=== PATIENT | male | born 1990 | race American Indian/Alaskan Native ===

== ENCOUNTER 2020-06-24 12:38 | Inpatient (IN) | payer OTHER ==
--- NOTE | 2020-06-24 13:13 | Event Note ---
ED Screening Note Date of service: 06/24/20 Time: 13:08 ED Screening Note: 30 yr old male presents to ED with substernal chest pain (tightness) its non radiating He states he notices it mainly when he walks. He also reports SOB on extertion, cough and wheezing. He states his mom told him it could be "blood clot" He denies any recent long distance travel or immobilization, hx of Cancer, hormone use, or recent surgery or LE injury He reports no calf pain or leg swelling He denies n/v, diaphoresis, abd pain, fever or chills He states he had treadmill stress test about 2 yrs ago at [facility] and it was neg. He states he thinks his dad had TX at 50. This initial assessment/diagnostic orders/clinical plan/treatment(s) is/are subject to change based on patients health status, clinical progression and re- assessment by fellow clinical providers in the ED. Further treatment and workup at subsequent clinical providers discretion. Patient/guardian urged not to elope from the ED as their condition may be serious if not clinically assessed and managed. Initial orders include: Chest pain order set
--- NOTE | 2020-06-24 13:46 | XRay Report ---
CHEST 2 VIEWS INDICATION: Chest Pain. COMPARISON: FINDINGS: Support devices: None. Heart: Within normal limits. Lungs: No acute air space or interstitial disease. Pleura: No significant pleural effusion. No pneumothorax. Additional findings: None. IMPRESSION: 1. No acute findings. Signer Name: Pritesh Franklin MD Signed: 06/24/2020 1:42 PM Workstation Name: [id number]
[2020-06-24 14:27] LABS: Basophils % (Auto) 0.5 % (0.0-1.8); Eosinophils # (Auto) 0.1 K/mm3 (0.0-0.4); Eosinophils % (Auto) 2.5 % (0.0-4.3); Hematocrit 48.2 % (35.5-45.6); Hemoglobin 15.9 gm/dl (11.8-15.2); Lymphocytes # (Auto) 1.9 K/mm3 (1.2-5.4); Lymphocytes % (Auto) 35.3 % (13.4-35.0); Mean Corpuscular HGB Conc 33 % (32-34); Mean Corpuscular Volume 93 fl (84-94); Monocytes # (Auto) 0.7 K/mm3 (0.0-0.8); Monocytes % (Auto) 12.8 % (0.0-7.3); Platelet Count 113 K/mm3 (140-440); Red Blood Count 5.18 M/mm3 (3.65-5.03); Red Cell Distribution Width 13.9 % (13.2-15.2)
[2020-06-24 15:03] LABS: Alanine Aminotransferase 32 units/L (7-56); BUN/Creatinine Ratio 6; Blood Urea Nitrogen 7 mg/dL (9-20); Calcium 9.1 mg/dL (8.4-10.2); Hemolysis Index 140
--- NOTE | 2020-06-24 17:07 | Emergency Department Report ---
<ANAANDREW PIERRE - Last Filed: 06/24/20 21:03> ED General Adult HPI - General Chief complaint: Chest Pain Stated complaint: TERESO X2WKS Time Seen by Provider: 06/24/20 16:51 Source: patient Mode of arrival: Ambulatory Limitations: No Limitations - History of Present Illness Initial comments: 30-year-old male patient with history of tobacco use, BMI >30 kg, and DVT (not currently on anticoagulation) presents to the emergency department with complaints of exertional nonradiating chest pain with associated dyspnea and palpitations starting 2 weeks ago. Describes the chest pain as "sharp/tight," relieved with rest. No known family history of early heart disease. No history of hypertension, hyperlipidemia, diabetes. No prior history of cardiac catheterization. Denies fever, chills, cough, syncope, nausea, vomiting, d iaphoresis, lower extremity swelling. Denies all other complaints at this time. - Related Data Allergies Allergy/AdvReac Type Severity Reaction Status Date / Time No Known Allergies Allergy Unverified 06/24/20 12:49 ED Review of Systems Other: GENERAL: Negative for fever, chills, weight change, anorexia, fatigue. ENT: Negative for ear pain, difficulty hearing, sore throat, nasal congestion, epistaxis. CARDIOVASCULAR: Positive for chest pain and palpitations. PULMONARY: Positive for dyspnea. GASTROINTESTINAL: Negative for abdominal pain, nausea, vomiting, diarrhea, constipation. MUSCULOSKELETAL: Positive for left thigh pain. NEUROLOGICAL: Negative for headache, seizure, syncope, paresthesias, weakness. INTEGUMENTARY: Negative for erythema, rash, diaphoresis, laceration, ecchymosis. HEMATOLOGICAL: Negative for hemoptysis, hematemesis, hematochezia, hematuria. PSYCHIATRIC: Negative for hallucinations, suicidal ideation, homicidal ideation, anxiety, depression. ED Past Medical Hx - Past Medical History Previous Medical History?: No Hx Tuberculosis: No - Surgical History Past Surgical History?: No - Social History Smoking Status: Current Every Day Smoker ED Physical Exam - General Limitations: No Limitations - Other Other exam information: General: Awake and alert. No acute distress. Head: Atraumatic, normocephalic. Eyes: EOMI. Pupils are equal and round. Normal sclera and conjunctiva. ENT: Oral mucosa is moist. Normal pharyngeal exam. Neck: Supple. No lymphadenopathy. Pulmonary: No respiratory distress. Clear to auscultation bilaterally. Cardiac: Regular rate and rhythm. Pulses are palpable and equal bilaterally. No lower extremity cyanosis or edema. Chest wall is nontender to palpation. Skin: Warm and dry. No rashes. Abdomen: Soft, non-tender, non-protuberant. No guarding, rigidity, or rebound. Bowel sounds are normal. No organomegaly or masses noted. Back: Normal alignment. No CVA tenderness. Extremities: Symmetrical. Full range of motion intact. Neurological: Alert and oriented, appropriately interactive, no focal deficits. Psych: Cooperative. Appropriate mood and affect. Speech is evenly metered. Thoughts are logically construed. ED Medical Decision Making - Lab Data Result diagrams: 06/24/20 13:40 06/24/20 13:40 - EKG Data 06/24/20 17:06 EKG shows normal sinus rhythm with a ventricular rate of 96 bpm. Normal axis. Normal MD interval. QT interval 390 ms. Inferolateral T wave inversions noted. No old EKG available for comparison. Over read by attending emergency physician, who agrees with this interpretation. - Radiology Data [facility] [address] [place] [address] Cat Scan Report Signed Patient: MAC BROWN JR MR#: [id number] : 1990 Acct:[id number] Age/Sex: 30 / M ADM Date: 06/24/20 Loc: ED Attending Dr: Ordering Physician: AUGUSTUS NICHOLS Date of Service: 06/24/20 Procedure(s): CT angio chest Accession Number(s): [id number] cc: AUGUSTUS NICHOLS CTA CHEST WITH CONTRAST INDICATION / CLINICAL INFORMATION: Chest pain. Shortness of breath. TECHNIQUE: Axial CT images were obtained through the chest after injection of Omnipaque 350, 100 cc IV contrast. 3 plane MIP and/or 3D reconstructions were produced. All CT scans at this location are performed using CT dose reduction for ALARA by means of automated exposure control. COMPARISON: None available. FINDINGS: PULMONARY ARTERIES: Lateral pulmonary emboli involving all lobes greatest at the right lower lobe where there is near complete obstruction. THORACIC AORTA: No significant abnormality. HEART: The right ventricle is greater than the left ventricle in size and there is mild bowing of the interventricular septum. Contrast refluxes into the superior aspect of the IVC. CORONARY ARTERY CALCIFICATION: None. MEDIASTINUM / GER: No significant abnormality. PLEURA: No pleural effusion. No pneumothorax. LUNGS: No acute air space or interstitial disease. ADDITIONAL FINDINGS: None. UPPER ABDOMEN: No acute findings. SKELETAL STRUCTURES: No significant osseous abnormality. IMPRESSION: 1. Large bilateral pulmonary emboli greatest at the right lower lobe. 2. Evidence of right heart strain. CRITICAL RESULT: Time of Discovery: 7:25 PM Time of Communication: 7:28 PM Licensed Practitioner Receiving Report: Mikayla Ana Read Back Performed: Yes. Signer Name: Iglesia Patrick MD Signed: 06/24/2020 8:33 PM Workstation Name: [id number] Transcribed By: ES Dictated By: Iglesia Patrick MD Electronically Authenticated By: Iglesia Patrick MD Signed Date/Time: 06/24/202032 DD/ 19 TD/TT: Print Cancel - Medical Decision Making Differential diagnosis including but not limited to: acute coronary syndrome, cardiac arrhythmia, pericarditis, pericardial effusion/cardiac tamponade, pneumonia, pneumothorax, pleural effusion, congestive heart failure, pulmonary embolism, aortic aneurysm/dissection Upon further interrogation following initial labs/imaging, patient also endorses a positive family history of venous thromboembolism. States he was previously prescribed Coumadin (and later Xarelto) for a DVT in his right leg, but he has been noncompliant with his anticoagulation since February 2020. He does endorse intermittent nontraumatic left thigh pain. D-Dimer is already in progress; will proceed with chest CTA + venous duplex US of the LLE if positive. On re-evaluation, patient remains stable. Tachycardia noted on arrival has resolved without intervention. D-dimer is significantly elevated; will proceed with further imaging. On re-evaluation, patient remains stable. Vital signs are within normal limits. His symptoms are unchanged. CTA of the chest demonstrates multiple large bilateral pulmonary emboli, greatest at the right lower lobe, with evidence of right heart strain. Since he remains hemodynamically stable without respiratory distress, there is no clinical indication for emergent catheter directed thrombolysis at this time. Patient will be started on IV heparin and admitted to the hospitalist for further management. Patient expressed understanding and is agreeable to plan of care. Case discussed with Dr. Talley, attending emergency physician, who agrees with plan of care and will discuss case with hospitalist for admission. ED Disposition Clinical Impression: Multiple pulmonary emboli Disposition: DC-[id number] OP ADMIT IP TO THIS HOSP Condition: Stable HEART Score - HEART Score History: Moderately suspicious EKG: Non-specific Age: < 45 Risk factors: 1-2 risk factors Troponin: < normal limit HEART Score: 3 - Critical Actions Critical Actions: 0-3 pts:0.9-1.7%risk of adverse cardiac event.Candidate for discharge <LAURIE TALLEY - Last Filed: 06/24/20 21:26> ED Review of Systems ROS: Stated complaint: TERESO X2WKS Other details as noted in HPI ED Course Vital Signs 06/24/20 06/24/20 06/24/20 12:49 17:46 18:00 Temperature 98.1 F Pulse Rate 108 H 93 H 104 H Respiratory 18 20 25 H Rate Blood Pressure 129/97 126/84 124/79 O2 Sat by Pulse 98 95 97 Oximetry 06/24/20 06/24/20 18:16 18:30 Temperature Pulse Rate 94 H 95 H Respiratory 28 H 22 Rate Blood Pressure 130/77 138/82 O2 Sat by Pulse 95 96 Oximetry ED Medical Decision Making - Lab Data Result diagrams: 06/24/20 13:40 06/24/20 13:40 - Medical Decision Making I spoke with Dr. Gomez, hospitalist who accepted patient to telemetry. I ordered heparin bolus and infusion. I also provided bridging orders. Critical care attestation.: If time is entered above; I have spent that time in minutes in the direct care of this critically ill patient, excluding procedure time. ED Disposition Is pt being admited?: Yes Does the pt Need Aspirin: No HEART Score - HEART Score Troponin: Troponin T < 0.010 ng/mL (0.00-0.029) 06/24/20 16:50
[2020-06-24] MEDS ORDERED: ASPIRIN 81 MG TAB CHEW PO ONE (17:08)
[2020-06-24 17:59] LABS: INR 1.05 (0.87-1.13)
[2020-06-24 18:00] LABS: Partial Thromboplastin Time 25.8 Sec. (24.2-36.6)
--- NOTE | 2020-06-24 20:04 | Vascular Lab Report ---
DUPLEX DOPPLER LOWER EXTREMITY VEINS, BILATERAL INDICATION: hx RLE DVT (not on AC) + LLE pain; (+) d-dimer. TECHNIQUE: Duplex doppler imaging was performed through the veins of both lower extremities using venous aleah trey and other maneuvers. COMPARISON: None available. FINDINGS: Right Common femoral vein: Negative. Right Superficial femoral vein: Negative. Right Popliteal vein: Negative. Right Calf veins: Negative. Left Common femoral vein: Negative. Left Superficial femoral vein: Negative. Left Popliteal vein: Negative. Left Calf veins: Negative. Additional findings: None. IMPRESSION: Negative for DVT. Signer Name: Iglesia Patrick MD Signed: 06/24/2020 7:59 PM Workstation Name: [id number]
[2020-06-24] MEDS ORDERED: HEPARIN 10,000 UNITS/10 ML VIAL IV ONE (20:33)
--- NOTE | 2020-06-24 20:37 | Cat Scan Report ---
CTA CHEST WITH CONTRAST INDICATION / CLINICAL INFORMATION: Chest pain. Shortness of breath. TECHNIQUE: Axial CT images were obtained through the chest after injection of Omnipaque 350, 100 cc I V contrast. 3 plane MIP and/or 3D reconstructions were produced. All CT scans at this location are pe rformed using CT dose reduction for ALARA by means of automated exposure control. COMPARISON: None available. FINDINGS: PULMONARY ARTERIES: Lateral pulmonary emboli involving all lobes greatest at the right lower lobe whe re there is near complete obstruction. THORACIC AORTA: No significant abnormality. HEART: The right ventricle is greater than the left ventricle in size and there is mild bowing of the interventricular septum. Contrast refluxes into the superior aspect of the IVC. CORONARY ARTERY CALCIFICATION: None. MEDIASTINUM / GER: No significant abnormality. PLEURA: No pleural effusion. No pneumothorax. LUNGS: No acute air space or interstitial disease. ADDITIONAL FINDINGS: None. UPPER ABDOMEN: No acute findings. SKELETAL STRUCTURES: No significant osseous abnormality. IMPRESSION: 1. Large bilateral pulmonary emboli greatest at the right lower lobe. 2. Evidence of right heart strain. CRITICAL RESULT: Time of Discovery: 7:25 PM Time of Communication: 7:28 PM Licensed Practitioner Receiving Report: Mikayla Perez Read Back Performed: Yes. Signer Name: Iglesia Patrick MD Signed: 06/24/2020 8:33 PM Workstation Name: [id number]
[2020-06-24] MEDS ORDERED: HEPARIN/ 0.45% NACL DRIP 25,000 UNIT/500 ML BAG IV SCH (21:00)
[2020-06-24] MEDS ORDERED: ALBUTEROL 2.5 MG/3 ML NEBU IH PRN (22:53)
[2020-06-24] MEDS ORDERED: ONDANSETRON 4 MG/2 ML INJ IV PRN (22:53)
[2020-06-24] MEDS ORDERED: ACETAMINOPHEN 325 MG TAB PO PRN (22:53)
[2020-06-24] MEDS ORDERED: MORPHINE 2 MG/1 ML INJ IV PRN (22:53)
--- NOTE | 2020-06-24 23:00 | History and Physical Report ---
History of Present Illness Date of examination: 06/24/20 Date of admission: 06/24/20 21:27 Chief complaint: Chest pain History of present illness: 30-year-old male patient with history of tobacco use, BMI >30 kg, and DVT (not currently on anticoagulation.) Was brought to the emergency department with complaints of exertional nonradiating chest pain with associated dyspnea and palpitations starting 2 weeks ago. Patient chest pain as "sharp/tight," relieved with rest. Denies fever, chills, cough, syncope, nausea, vomiting, diaphoresis, lower extremity swelling. Denies all other complaints at this time. In the emergency room patient is found to have multiple pulmonary embolism. Troponin is 0.010 Past History Past Medical History: DVT Social history: smoking Medications and Allergies Allergies Allergy/AdvReac Type Severity Reaction Status Date / Time No Known Allergies Allergy Unverified 06/24/20 12:49 Active Meds: Active Medications Acetaminophen (Acetaminophen 325 Mg Tab) 650 mg PO Q4H PRN PRN Reason: Pain MILD(1-3)/Fever >100.5/KIRK Albuterol (Albuterol 2.5 Mg/3 Ml Nebu) 2.5 mg IH Q4HRT PRN PRN Reason: Shortness Of Breath Docusate Sodium (Docusate Sodium 100 Mg Cap) 100 mg PO BID CHANTAL Famotidine (Famotidine 10 Mg Tab) 10 mg PO BID CHANTAL Heparin Sodium/Sodium Chloride (Heparin/ 0.45% Nacl-25,000 Unit/500 Ml) 25,000 unit in 500 mls @ 27 mls/hr IV TITR CHANTAL; Protocol Last Admin: 06/24/20 21:19 Dose: 1,350 units/hr, 27 mls/hr Documented by: Morphine Sulfate (Morphine 2 Mg/1 Ml Inj) 2 mg IV Q4H PRN PRN Reason: Pain, Moderate (4-6) Ondansetron HCl (Ondansetron 4 Mg/2 Ml Inj) 4 mg IV Q8H PRN PRN Reason: Nausea And Vomiting Sodium Chloride (Sodium Chloride 0.9% 10 Ml Flush Syringe) 10 ml IV BID CHANTAL Sodium Chloride (Sodium Chloride 0.9% 10 Ml Flush Syringe) 10 ml IV PRN PRN PRN Reason: LINE FLUSH Review of Systems Cardiovascular: chest pain, palpitations, shortness of breath Respiratory: shortness of breath, dyspnea on exertion Exam - Constitutional Vitals: Temp Pulse Resp BP Pulse Ox 98.1 F 95 H 22 138/82 96 06/24/20 12:49 06/24/20 18:30 06/24/20 18:30 06/24/20 18:30 06/24/20 18:30 General appearance: Present: no acute distress, well-nourished - EENT Eyes: Present: PERRL ENT: hearing intact, clear oral mucosa - Neck Neck: Present: supple, normal ROM - Respiratory Respiratory effort: normal Respiratory: bilateral: diminished - Cardiovascular Heart Sounds: Present: S1 & S2. Absent: rub, click - Extremities Extremities: pulses symmetrical, No edema Peripheral Pulses: within normal limits - Abdominal General gastrointestinal: Present: soft, non-tender, non-distended, normal bowel sounds Male genitourinary: Present: normal - Integumentary Integumentary: Present: clear, warm, dry - Musculoskeletal Musculoskeletal: gait normal, strength equal bilaterally - Psychiatric Psychiatric: appropriate mood/affect, intact judgment & insight - Neurologic Neurologic: CNII-XII intact, moves all extremities HEART Score - HEART Score EKG: Non-specific Age: < 45 Risk factors: 1-2 risk factors Troponin: Troponin T < 0.010 ng/mL (0.00-0.029) 06/24/20 16:50 Troponin: < normal limit - Critical Actions Critical Actions: 0-3 pts:0.9-1.7%risk of adverse cardiac event.Candidate for rory ewing Results - Labs CBC & Chem 7: 06/24/20 13:40 06/24/20 13:40 Labs: Laboratory Last Values WBC 5.4 K/mm3 (4.5-11.0) 06/24/20 13:40 RBC 5.18 M/mm3 (3.65-5.03) H 06/24/20 13:40 Hgb 15.9 gm/dl (11.8-15.2) H 06/24/20 13:40 Hct 48.2 % (35.5-45.6) H 06/24/20 13:40 MCV 93 fl (84-94) 06/24/20 13:40 MCH 31 pg (28-32) 06/24/20 13:40 MCHC 33 % (32-34) 06/24/20 13:40 RDW 13.9 % (13.2-15.2) 06/24/20 13:40 Plt Count 113 K/mm3 (140-440) L 06/24/20 13:40 Lymph % (Auto) 35.3 % (13.4-35.0) H 06/24/20 13:40 [place] % (Auto) 12.8 % (0.0-7.3) H 06/24/20 13:40 Eos % (Auto) 2.5 % (0.0-4.3) 06/24/20 13:40 Baso % (Auto) 0.5 % (0.0-1.8) 06/24/20 13:40 Lymph # (Auto) 1.9 K/mm3 (1.2-5.4) 06/24/20 13:40 [place] # (Auto) 0.7 K/mm3 (0.0-0.8) 06/24/20 13:40 Eos # (Auto) 0.1 K/mm3 (0.0-0.4) 06/24/20 13:40 Baso # (Auto) 0.0 K/mm3 (0.0-0.1) 06/24/20 13:40 Seg Neutrophils % 48.9 % (40.0-70.0) 06/24/20 13:40 Seg Neutrophils # 2.6 K/mm3 (1.8-7.7) 06/24/20 13:40 PT 13.5 Sec. (12.2-14.9) 06/24/20 17:20 INR 1.05 (0.87-1.13) 06/24/20 17:20 APTT 25.8 Sec. (24.2-36.6) 06/24/20 17:20 D-Dimer 1710.63 ng/mlDDU (0-234) H 06/24/20 16:54 Sodium 139 mmol/L (137-145) 06/24/20 13:40 Potassium 4.5 mmol/L (3.6-5.0) 06/24/20 13:40 Chloride 103.0 mmol/L (98-107) 06/24/20 13:40 Carbon Dioxide 24 mmol/L (22-30) 06/24/20 13:40 Anion Gap 17 mmol/L 06/24/20 13:40 BUN 7 mg/dL (9-20) L 06/24/20 13:40 Creatinine 1.1 mg/dL (0.8-1.3) 06/24/20 13:40 Estimated GFR > 60 ml/min 06/24/20 13:40 BUN/Creatinine Ratio 6 % 06/24/20 13:40 Glucose 95 mg/dL (75-100) 06/24/20 13:40 Calcium 9.1 mg/dL (8.4-10.2) 06/24/20 13:40 Total Bilirubin 1.50 mg/dL (0.1-1.2) H 06/24/20 13:40 AST 40 units/L (5-40) 06/24/20 13:40 ALT 32 units/L (7-56) 06/24/20 13:40 Alkaline Phosphatase 96 units/L (35-129) 06/24/20 13:40 Troponin T < 0.010 ng/mL (0.00-0.029) 06/24/20 16:50 Total Protein 6.8 g/dL (6.3-8.2) 06/24/20 13:40 Albumin 4.0 g/dL (3.9-5) 06/24/20 13:40 Albumin/Globulin Ratio 1.4 % 06/24/20 13:40 - Imaging and Cardiology CT scan - chest: image reviewed Assessment and Plan VTE prophylaxis?: Chemical Plan of care discussed with patient/family: Yes - Patient Problems (1) Multiple pulmonary emboli Current Visit: Yes Status: Acute Plan to address problem: Admit the patient to the medical telemetry. Put the patient on oxygen nasal cannula 3 L/min. Heparin drip as per protocol. We will monitor the patient closely. We will put the patient on Xarelto or Eliquis in the morning. Patient is a full code (2) DVT (deep venous thrombosis) Current Visit: Yes Status: Acute Plan to address problem: Put the patient on oxygen nasal cannula 3 L/min. Heparin drip as per protocol. We will monitor the patient closely. We will put the patient on Xarelto or Eliquis in the morning (3) Tobacco abuse Current Visit: Yes Status: Acute Plan to address problem: Patient counseled regarding quit smoking. Patient is put on nicotine patch (4) DVT prophylaxis Current Visit: Yes Status: Acute Plan to address problem: Patient is on heparin drip for DVT prophylaxis
[2020-06-25 04:46] LABS: Basophils % (Auto) 0.5 % (0.0-1.8); Eosinophils # (Auto) 0.2 K/mm3 (0.0-0.4); Eosinophils % (Auto) 3.4 % (0.0-4.3); Hematocrit 45.6 % (35.5-45.6); Hemoglobin 15.2 gm/dl (11.8-15.2); Lymphocytes # (Auto) 2.6 K/mm3 (1.2-5.4); Lymphocytes % (Auto) 40.5 % (13.4-35.0); Mean Corpuscular HGB Conc 33 % (32-34); Mean Corpuscular Volume 93 fl (84-94); Monocytes # (Auto) 0.7 K/mm3 (0.0-0.8); Monocytes % (Auto) 11.7 % (0.0-7.3); Platelet Count 110 K/mm3 (140-440); Red Blood Count 4.89 M/mm3 (3.65-5.03); Red Cell Distribution Width 13.8 % (13.2-15.2)
[2020-06-25 04:49] LABS: INR 1.04 (0.87-1.13)
[2020-06-25 05:53] LABS: Amphetamine Screen,Urine Negative; Benzodiazepines Screen,Urine Negative; Cocaine Screen,Urine Negative; Methadone Screen,Urine Negative; Opiate Screen,Urine Negative
[2020-06-25 06:05] LABS: Cannabinoid Screen,Urine Positive
[2020-06-25 08:15] LABS: BUN/Creatinine Ratio 8; Blood Urea Nitrogen 10 mg/dL (9-20); Calcium 10.2 mg/dL (8.4-10.2); Hemolysis Index 20
[2020-06-25] MEDS: FAMOTIDINE 10 MG TAB PO SCH ×2 (09:35→21:33)
[2020-06-25] MEDS: DOCUSATE SODIUM 100 MG CAP PO SCH ×2 (09:36→21:33)
--- NOTE | 2020-06-25 10:35 | Electrocardiograph Report ---
[facility] Test Date: 2020-06-24 Test Time: 12:47:12 Pat Name: MAC BROWN Department: Room: A479 1 Gender: M Health Insurance Agent: DANE : 1990 Requested By: LAURIE OLIVAS Order Number: [id number] Reading MD: Noah Villatoro Measurements Intervals [place] Rate: 96 P: 49 ND: 138 QRS: 44 QRSD: 83 T: -23 QT: 390 QTc: 492 Interpretive Statements Sinus rhythm Abnrm T, probable ischemia, anterolateral lds Prolonged QT interval No previous ECG available for comparison Electronically Signed On 06-25-2020 10:35:38 EDT by Noah Villatoro
--- NOTE | 2020-06-25 10:40 | Electrocardiograph Report ---
[facility] Test Date: 2020-06-25 Test Time: 08:17:35 Pat Name: MAC BROWN Department: Room: A479 1 Gender: M [employer]: KIMBERLY : 1990 Requested By: ANDREW LOPEZ Order Number: [id number] Reading MD: Noah Villatoro Measurements Intervals [place] Rate: 75 P: 41 ID: [id number] QRS: 43 QRSD: 94 T: -31 QT: 461 QTc: 515 Interpretive Statements Sinus rhythm Abnormal T, probable ischemia, anterior leads Prolonged QT interval No previous ECG available for comparison Electronically Signed On 06-25-2020 10:40:50 EDT by Noah Villatoro
[2020-06-25] MEDS: APIXABAN 5 MG TAB PO SCH ×2 (15:35→21:34)
--- NOTE | 2020-06-25 16:27 | Progress Note ---
Assessment and Plan --Acute hypoxic respiratory failure-- Likely due to underlying pulmonary emboli, consult pulmonology continue supplemental O2 to keep O2 sat above 94% Continue anticoagulation, nebulizer breathing treatment as needed and scheduled -- Multiple pulmonary emboli Current Visit: Yes Status: Acute Plan to address problem: Admit the patient to the medical telemetry. Put the patient on oxygen nasal cannula 3 L/min. Status post heparin drip as per protocol. We will monitor the patient closely. Placed on Eliquis, will continue to monitor -- DVT (deep venous thrombosis) Current Visit: Yes Status: Acute Plan to address problem: Put the patient on oxygen nasal cannula 3 L/min. Heparin drip as per protocol. We will monitor the patient closely. We will put the patient on Xarelto or Eliquis in the morning -- Tobacco abuse Current Visit: Yes Status: Acute Plan to address problem: Patient counseled regarding quit smoking. Patient is put on nicotine patch --Morbid obesity, diet and exercise regimen recommended when clinically more stable as outpatient -- DVT prophylaxis Current Visit: Yes Status: Acute Plan to address problem: Patient is on heparin drip for DVT prophylaxis Daily clinical course: 06/25: will stop heparin drip, will start on Eliquis. 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 We will also order 2D echocardiogram, if clinically stable patient will be discharged home tomorrow. Subjective Date of service: 06/25/20 Interval history: Patient seen and examined. Medical records and medication list reviewed. No acute event overnight noted by the RN. Patient denies any chest pain but complains of difficulty breathing on ambulation. Patient is tolerating diet. Discussed plan of care at bedside with patient. Objective - Exam Narrative Exam: GENERAL: well-developed and morbidly obese -Tajik male lying on bed appeared to be in no discomfort. HEENT: Normocephalic. Atraumatic. No conjunctival congestion or icterus. Patient has moist mucous membranes. NECK: Supple. Trachea midline. CHEST/LUNGS: Clear to auscultated bilaterally, breathing nonlabored. No wheezes crackles or rhonchi. HEART/CARDIOVASCULAR: Regular in rate and rhythm. S1 and S2 positive. ABDOMEN: Abdomen is soft, nontender. Patient has normal bowel sounds. SKIN: There is no rash. Warm and dry. NEURO: No focal motor deficit. Follows command. MUSCULOSKELETAL: No joint effusion or tenderness. EXTRIMITY: No edema, no cyanosis or clubbing. PSYCH: Cooperative. - Constitutional Vitals: Vital Signs - 12hr 06/25/20 06/25/20 06/25/20 05:36 09:35 10:00 Pulse Rate 79 O2 Sat by Pulse 98 99 Oximetry - Labs CBC & Chem 7: 06/26/20 06:43 06/25/20 04:13 Labs: Abnormal lab results 06/24/20 06/25/20 06/25/20 Range/Units 16:54 04:13 04:13 Plt Count 110 L (140-440) K/mm3 Lymph % (Auto) 40.5 H (13.4-35.0) % Desha % (Auto) 11.7 H (0.0-7.3) % D-Dimer 1710.63 H (0-234) ng/mlDDU Heparin Anti-Xa Level 0.84 H (0.3-0.7) U.I./ml Glucose (75-100) mg/dL 06/25/20 Range/Units 04:13 Plt Count (140-440) K/mm3 Lymph % (Auto) (13.4-35.0) % Desha % (Auto) (0.0-7.3) % D-Dimer (0-234) ng/mlDDU Heparin Anti-Xa Level (0.3-0.7) U.I./ml Glucose 116 H (75-100) mg/dL HEART Score - HEART Score EKG: Non-specific Age: < 45 Risk factors: 1-2 risk factors Troponin: Troponin T < 0.010 ng/mL (0.00-0.029) 06/24/20 16:50 Troponin: < normal limit - Critical Actions Critical Actions: 0-3 pts:0.9-1.7%risk of adverse cardiac event.Candidate for rory ewing
[2020-06-26 04:42] VITALS: BP 108/72
[2020-06-26 07:46] LABS: Hemoglobin 14.5 gm/dl (11.8-15.2)
[2020-06-26] MEDS: FAMOTIDINE 10 MG TAB PO SCH (09:49)
[2020-06-26] MEDS: APIXABAN 5 MG TAB PO SCH (09:49)
[2020-06-26] MEDS: DOCUSATE SODIUM 100 MG CAP PO SCH (09:49)
--- NOTE | 2020-06-26 13:07 | Consultation ---
History of Present Illness Consult date: 06/26/20 Reason for consult: dyspnea, chest pain, pulmonary embolism, DVT History of present illness: 30-year-old male patient with history of tobacco use, BMI >30 kg, and DVT (not currently on anticoagulation) presents to the emergency department with c omplaints of exertional nonradiating chest pain with associated dyspnea and palpitations starting 2 weeks ago. Describes the chest pain as "sharp/tight," relieved with rest. No known family history of early heart disease. No history of hypertension, hyperlipidemia, diabetes. No prior history of cardiac catheterization. Denies fever, chills, cough, syncope, nausea, vomiting, diaphoresis, lower extremity swelling. Patient alert, awake. Resting on room air. Patient maintained O2 saturation 95% on 6 minute walk test. No complaint of chest pain, shortness of breath or cough at this time. Patient afebrile. No leukocytosis. Patients D dimer elevated 1710.63. Chest xray 06/24/20 reported No acute findings. Patient also has Angio CT of chest on 06/24/20 reported Large bilateral pulmonary emboli greatest at the right lower lobe. Evidence of right heart strain. Patient has hisory of Asthma. Patient has history of smoking 3 ciaretts a day x 10 years. Driks alcohol. Denies drug abuse. Counselled to stop smoking and drinking. Works in [employer]. No known drug allergies. Not . Has no children. Patient presently on Apixaban, albuterol inhaler and Famotidine. Past History Past Medical History: DVT, other (Asthma) Social history: smoking Medications and Allergies Allergies Allergy/AdvReac Type Severity Reaction Status Date / Time No Known Allergies Allergy Verified 06/25/20 16:53 Home Medications Medication Instructions Recorded Confirmed Last Taken Type Apixaban [Eliquis] 5 mg PO Q12HR #60 tablet 06/26/20 Unknown Rx Active Meds: Active Medications Acetaminophen (Acetaminophen 325 Mg Tab) 650 mg PO Q4H PRN PRN Reason: Pain MILD(1-3)/Fever >100.5/KIRK Albuterol (Albuterol 2.5 Mg/3 Ml Nebu) 2.5 mg IH Q4HRT PRN PRN Reason: Shortness Of Breath Apixaban (Apixaban 5 Mg Tab) 10 mg PO Q12HR [facility]; Protocol Stop: 07/01/20 23:59 Last Admin: 06/26/20 09:49 Dose: 10 mg Documented by: Apixaban (Apixaban 5 Mg Tab) 5 mg PO Q12HR [facility]; Protocol Docusate Sodium (Docusate Sodium 100 Mg Cap) 100 mg PO BID [facility] Last Admin: 06/26/20 09:49 Dose: 100 mg Documented by: Famotidine (Famotidine 10 Mg Tab) 10 mg PO BID [facility] Last Admin: 06/26/20 09:49 Dose: 10 mg Documented by: Morphine Sulfate (Morphine 2 Mg/1 Ml Inj) 2 mg IV Q4H PRN PRN Reason: Pain, Moderate (4-6) Ondansetron HCl (Ondansetron 4 Mg/2 Ml Inj) 4 mg IV Q8H PRN PRN Reason: Nausea And Vomiting Sodium Chloride (Sodium Chloride 0.9% 10 Ml Flush Syringe) 10 ml IV BID [facility] Last Admin: 06/26/20 09:49 Dose: 10 ml Documented by: Sodium Chloride (Sodium Chloride 0.9% 10 Ml Flush Syringe) 10 ml IV PRN PRN PRN Reason: LINE FLUSH Review of Systems All systems: negative Physical Examination Vital signs: Vital Signs Temp Pulse Resp BP Pulse Ox 98.1 F 108 H 18 129/97 98 06/24/20 12:49 06/24/20 12:49 06/24/20 12:49 06/24/20 12:49 06/24/20 12:49 General appearance: no acute distress, alert Eyes: non-icteric ENT: oropharynx moist Neck: supple, no JVD Effort: normal Ascultation: Bilateral: diminished breath sounds Cardiovascular: regular rate and rhythm Gastrointestinal: normoactive bowel sounds, soft Integumentary: normal Musculoskeletal: no deformities Gait: normal gait normal mental status, non-focal exam, pupils equal and round, CN II-XII normal mood appropriate Results - Laboratory Findings CBC and BMP: 06/26/20 06:43 06/25/20 04:13 PT/INR, D-dimer PT 13.4 Sec. (12.2-14.9) 06/25/20 04:13 INR 1.04 (0.87-1.13) 06/25/20 04:13 D-Dimer 1710.63 ng/mlDDU (0-234) H 06/24/20 16:54 Abnormal lab findings: Abnormal Labs 06/24/20 06/24/20 06/24/20 13:40 13:40 16:54 RBC 5.18 H Hgb 15.9 H Hct 48.2 H Plt Count 113 L Lymph % (Auto) 35.3 H Gallia % (Auto) 12.8 H D-Dimer 1710.63 H Heparin Anti-Xa Level BUN 7 L Glucose Total Bilirubin 1.50 H 06/25/20 06/25/20 06/25/20 04:13 04:13 04:13 RBC Hgb Hct Plt Count 110 L Lymph % (Auto) 40.5 H Gallia % (Auto) 11.7 H D-Dimer Heparin Anti-Xa Level 0.84 H BUN Glucose 116 H Total Bilirubin 06/26/20 06:43 RBC Hgb Hct Plt Count 110 L Lymph % (Auto) Gallia % (Auto) D-Dimer Heparin Anti-Xa Level BUN Glucose Total Bilirubin - Diagnostic Findings Chest x-ray: report reviewed, image reviewed CT scan - chest: report reviewed, image reviewed Additional studies: CHEST 2 VIEWS 06/24/20 INDICATION: Chest Pain. COMPARISON: FINDINGS: Support devices: None. Heart: Within normal limits. Lungs: No acute air space or interstitial disease. Pleura: No significant pleural effusion. No pneumothorax. Additional findings: None. IMPRESSION: 1. No acute findings. CTA CHEST WITH CONTRAST 06/24/20 INDICATION / CLINICAL INFORMATION: Chest pain. Shortness of breath. TECHNIQUE: Axial CT images were obtained through the chest after injection of Omnipaque 350, 100 cc IV contrast. 3 plane MIP and/or 3D reconstructions were produced. All CT scans at this location are performed using CT dose reduction for ALARA by means of automated exposure control. COMPARISON: None available. FINDINGS: PULMONARY ARTERIES: Lateral pulmonary emboli involving all lobes greatest at the right lower lobe where there is near complete obstruction. THORACIC AORTA: No significant abnormality. HEART: The right ventricle is greater than the left ventricle in size and there is mild bowing of the interventricular septum. Contrast refluxes into the superior aspect of the IVC. CORONARY ARTERY CALCIFICATION: None. MEDIASTINUM / GER: No significant abnormality. PLEURA: No pleural effusion. No pneumothorax. LUNGS: No acute air space or interstitial disease. ADDITIONAL FINDINGS: None. UPPER ABDOMEN: No acute findings. SKELETAL STRUCTURES: No significant osseous abnormality. IMPRESSION: 1. Large bilateral pulmonary emboli greatest at the right lower lobe. 2. Evidence of right heart strain. DUPLEX DOPPLER LOWER EXTREMITY VEINS, BILATERAL 06/24/20 INDICATION: hx RLE DVT (not on AC) + LLE pain; (+) d-dimer. TECHNIQUE: Duplex doppler imaging was performed through the veins of both lower extremities using venous compression and other maneuvers. COMPARISON: None available. FINDINGS: Right Common femoral vein: Negative. Right Superficial femoral vein: Negative. Right Popliteal vein: Negative. Right Calf veins: Negative. Left Common femoral vein: Negative. Left Superficial femoral vein: Negative. Left Popliteal vein: Negative. Left Calf veins: Negative. Additional findings: None. IMPRESSION: Negative for DVT. Assessment and Plan 30-year-old male patient with history of tobacco use, BMI >30 kg, and DVT (not currently on anticoagulation) presents to the emergency department with compla ints of exertional nonradiating chest pain with associated dyspnea and palpitations starting 2 weeks ago. Describes the chest pain as "sharp/tight," relieved with rest. No known family history of early heart disease. No history of hypertension, hyperlipidemia, diabetes. No prior history of cardiac catheterization. Denies fever, chills, cough, syncope, nausea, vomiting, diaphoresis, lower extremity swelling. Patient alert, awake. Resting on room air. Patient maintained O2 saturation 95% on 6 minute walk test. No complaint of chest pain, shortness of breath or cough at this time. Patient afebrile. No leukocytosis. Patients D dimer elevated 1710.63. Chest xray 06/24/20 reported No acute findings. Patient also has Angio CT of chest on 06/24/20 reported Large bilateral pulmonary emboli greatest at the right lower lobe. Evidence of right heart strain. Patient has hisory of Asthma. Patient has history of smoking 3 ciaretts a day x 10 years. Driks alcohol. Denies drug abuse. Counselled to stop smoking and drinking. Works in [employer]. No known drug allergies. Not . Has no ch ildren. Patient presently on Apixaban, albuterol inhaler and Famotidine. I spent critical care time of 45 minutes on this patient in obtaining history, Examining the patient, review the chart, review the labs, chest xray, CAT scan of chest, Talking to the nursing and respiratory therapy and work out plan of treatment. - Patient Problems (1) Multiple pulmonary emboli Current Visit: Yes Status: Acute Plan to address problem: Patient is on Apixaban. (2) Tobacco abuse Current Visit: Yes Status: Acute Plan to address problem: Counselled to stop smoking. (3) Asthma Current Visit: Yes Status: Acute Plan to address problem: Albuterol inhaler as needed for wheezing.
--- NOTE | 2020-06-26 13:26 | Discharge Summary ---
Providers - Providers Date of Admission: 06/25/20 11:00 Date of discharge: 06/26/20 Attending physician: MEJIA CONRAD 06/25/20 10:56 Consult to Physician [CONS] Routine Comment: Consulting Provider: NIALL AGUILAR Physician Instructions: Reason For Exam: pulmonary emboli 06/25/20 16:27 Consult to Case Management [CONS] Routine Services Needed at Discharge: Other Notified:: child welfare caseworker Additional Physician Instructions: Medication assistance Primary care physician: VARYING EXCEPTIONALITIES TEACHER Hospitalization Condition: Stable Disposition: DC-01 TO HOME OR SELFCARE Final Discharge Diagnosis (Prints w/discharge instructions): Acute hypoxic respiratory failure, multiple pulmonary emboli, DVT, tobacco abuse, morbid obesity, noncompliance Time spent for discharge: 34 minutes Core Measure Documentation - Palliative Care Palliative Care/ Comfort Measures: Not Applicable - Core Measures Any of the following diagnoses?: none Exam - Physical Exam Narrative exam: GENERAL: well-developed and morbidly obese -[place]aced[place] male lying on bed appeared to be in no discomfort. HEENT: Normocephalic. Atraumatic. No conjunctival congestion or icterus. Patient has moist mucous membranes. NECK: Supple. Trachea midline. CHEST/LUNGS: Clear to auscultated bilaterally, breathing nonlabored. No wheezes crackles or rhonchi. HEART/CARDIOVASCULAR: Regular in rate and rhythm. S1 and S2 positive. ABDOMEN: Abdomen is soft, nontender. Patient has normal bowel sounds. SKIN: There is no rash. Warm and dry. NEURO: No focal motor deficit. Follows command. MUSCULOSKELETAL: No joint effusion or tenderness. EXTRIMITY: No edema, no cyanosis or clubbing. PSYCH: Cooperative. 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 Continue Eliquis 10 mg twice daily for 5 more days then switch to Eliquis 5 mg twice a day. Repeat CBC in 1 week. Follow-up with testboard operator as outpatient. Follow up with: PRIMARY CARE, [Primary Care Provider] - 7 Days BRANDY BUSTILLOS MD [Staff Physician] - 7 Days Prescriptions: Apixaban [Eliquis] 5 mg PO Q12HR #60 tablet
[2020-07-02] MEDS ORDERED: APIXABAN 5 MG TAB PO SCH (10:00)
== END 2020-06-26 15:38 | disposition home or self-care (01) | DRG 175 ==
LOC: ED 12:38 → 4A 21:27 → OBSVTOIN 06-25 11:00
PROVIDERS: ADMIT Hospitalist; ATTEND Internal Medicine
DX: I26.09 Other pulmonary embolism with acute cor pulmonale (principal); J96.01 Acute respiratory failure with hypoxia; I82.409 Acute embolism and thrombosis of unspecified deep veins of unspecified lower extremity; F17.210 Nicotine dependence, cigarettes, uncomplicated; J45.909 Unspecified asthma, uncomplicated; Z79.899 Other long term (current) drug therapy; Z79.891 Long term (current) use of opiate analgesic; Z79.01 Long term (current) use of anticoagulants; Z91.19 Patient's noncompliance with other medical treatment and regimen; Z71.6 Tobacco abuse counseling; Z68.36 Body mass index [BMI] 36.0-36.9, adult
CPT/HCPCS: 36415; 71046; 71275; 80048; 80053; 80307; 84484; 85014; 85018; 85025; 85049; 85379; 85520; 85610; 85730; 93005; 93306; 93970; 96365; 96367; G0378; J1644; Q9967